=== PATIENT | female | born 1975 | race Caucasian/White ===

== ENCOUNTER → 2016-11-26 | Outpatient (CLI) | payer MEDICARE, OTHER | LOC: CT 08:30 | DX: C50.412 Malignant neoplasm of upper-outer quadrant of left female breast (principal); C79.51 Secondary malignant neoplasm of bone; R59.9 Enlarged lymph nodes, unspecified; R06.02 Shortness of breath; R10.9 Unspecified abdominal pain; Z90.12 Acquired absence of left breast and nipple | CPT/HCPCS: 70491; 71260; 74160; J7050; Q9962 ==

== ENCOUNTER → 2017-03-21 | Outpatient (CLI) | payer MEDICARE, OTHER | LOC: HEART CORB 10-27 09:45 | DX: C50.412 Malignant neoplasm of upper-outer quadrant of left female breast (principal); C50.812 Malignant neoplasm of overlapping sites of left female breast; Z79.899 Other long term (current) drug therapy ==